=== PATIENT | male | born 1935 | race Caucasian/White ===

== ENCOUNTER → 2017-02-24 | Day surgery (SDC) | payer MEDICARE ==
[~2017-02-24] MED LIST: ACETAMINOPHEN 1000 MG/100 ML VIAL IV ONE; BUPIVACAINE/EPINEPHRINE 0.25% 50 ML VIAL ONE; KETOROLAC TROMETHAMINE 30 MG/ML (IVP) VIAL IV PUSH ONE; LACTATED RINGER'S 1000 ML INJ 1,000 ML ONE; LIDOCAINE 1%/EPINEPHrine 1:100,000 SOLN 50 ML VIAL ONE; ONDANSETRON HCL 4 MG/2 ML VIAL IV PUSH ONE; PROPOFOL 200 MG/20 ML AMP IV ONE; SODIUM CHLORIDE 0.9% 250 ML ADDBAG IV ONE; VANCOMYCIN HCL 1000 MG VIAL ONE; ceFAZolin INJ 1,000 MG VIAL ONE
--- NOTE | 2017-02-27 17:34 | MP ---
cc: YASMIN OCAMPO M.D. DATE OF SURGERY 02/24/2017 PROCEDURE 1. Primary umbilical hernia repair. 2. Right inguinal hernia repair with mesh. PREOPERATIVE DIAGNOSIS 1. Reducible umbilical hernia. 2. Symptomatic right inguinal hernia. POSTOPERATIVE DIAGNOSIS 1. Reducible umbilical hernia. 2. Symptomatic right inguinal hernia. 3. Indirect inguinal hernia on the right. ANESTHESIA TIVA. SURGEON MD Yash MERCHANDISE CLERK Rochelle Steinberg, SAMAN ESTIMATED BLOOD LOSS Less than 30 ml. FLUIDS 950 ml crystalloid. COMPLICATIONS None. DRAINS None. SPECIMEN None. PROCEDURE IN DETAIL The patient was seen in the holding area and the right groin marked by the undersigned and confirmed by the patient. He was placed on the operating table in the supine position. He underwent IV sedation and the right groin and the periumbilical region were shaved, prepped and draped. Time-out was taken confirming the correct patient, site and procedures to be performed. The MAT WORKER was present throughout the entirety of the procedure. Her presence was required for retraction, exposure and resection of important structures. Attention was turned to the umbilicus first. The transverse incision was made onto the umbilicus after injecting with local anesthetic. The umbilical skin was from the hernia defect with sharp dissection. Small bleeding points were controlled with electrocautery. The defect was seen to be less than 1 cm in diameter. This fascial edges were freshened up and the preperitoneal fat was easily reduced into the abdominal cavity. Interrupted 0 Prolene suture was used in a longitudinal fashion to close the defect. When this was completed local anesthetic was injected and umbilical skin was reattached to the fascia with 3-0 Vicryl suture. The wound was closed with interrupted 3-0 Vicryl suture and the skin closed with 5-0 PDS in a running subcuticular fashion. The wound was dressed with a 4x4 and Tegaderm. Sponge, needle and instrument counts were reported be correct at this point. Attention was then turned to the right groin which had previously been injected with local anesthetic. A slightly oblique incision was made and carried down to the external oblique fascia. Further subfascial injections were made with local anesthetic. The fascia was opened in the direction of its fibers and the underlying tissues swept free. The iliohypogastric nerve was identified and kept in its [place] tissue bed with minimal dissection. Care was taken to keep all sutures away from the nerves as it perforated the external oblique fascia. The spermatic cord structures were brought up on a Allyssa drain. The patient was noted to have an indirect hernia defect with some weakness in the floor directly. The indirect hernia defect was dissected off of the spermatic cord structures. The hernia sac was entered at one point and at this point a pursestring suture was placed around the sac to close it down. The excess sac was trimmed off and the stump was allowed to retract into the abdominal cavity. When this was completed, a 3 x 6 inch piece of atrium mesh was brought up and fixed to the pubic tubercle with 2-0 Prolene suture. This was then run along the shelving edge of the inguinal ligament to complete the lateral edge of the repair. The mesh was split longitudinally to allow for egress of the cord structures and trimmed to size to fit the defect. The mesh was fixed at multiple points medially with interrupted 2-0 Prolene suture. The medial leaf of the mesh was brought over the lateral leaf of mesh and fixed at four points with 2-0 Prolene suture to create a new internal ring and secure the repair. When this was completed and hemostasis assured, the external oblique fascia was closed with a running 3-0 Vicryl suture. Care was taken to exclude the iliohypogastric nerve from this closure. When this was completed and after local anesthetic had been injected into the fascia and subcutaneous tissue, the wound was closed with interrupted 3-0 Vicryl suture and 5-0 PDS in a running subcuticular fashion. The wound was dressed with Telfa and Tegaderm. The patient then taken back to the recovery room in stable condition. He tolerated the procedure well. Sponge, needle and instrument counts were once again reported to be correct. MD ALEX Faulkner/INGA /2:21 PM /5:20 PM SUKHDEEP
== END | disposition home or self-care (01) ==
LOC: ESDC 08:31
PROVIDERS: ATTEND Surgery Trauma Surgery
DX: K42.9 Umbilical hernia without obstruction or gangrene (principal); K40.90 Unilateral inguinal hernia, without obstruction or gangrene, not specified as recurrent
CPT/HCPCS: 00750; 00830; 49505; 49585; C1781; J0131; J0690; J1885; J2405; J3010; J3370; J7120